=== PATIENT | male | born 1975 | race African-American/Black ===

== ENCOUNTER 2021-03-27 07:37 | Emergency (ER) | payer MEDICAID ==
[~2021-03-27] VITALS: Ht 175.3 cm; Wt 77.0 kg
[2021-03-27] MEDS ORDERED: KETOROLAC 30MG/ML VIAL IV STA (07:55)
[2021-03-27 08:18] LABS: BASOPHILS % 0.9 % (0.0-2.0); EOSINOPHILS % 0.6 % (0.0-5.0); HEMATOCRIT. 41.5 % (42.0-52.0); HEMOGLOBIN. 14.4 g/dL (14.0-18.0); LYMPHOCYTES % 24.1 % (20.0-50.0); MEAN CORPUSCULAR VOLUME 98.2 fL (80.0-94.0); MEAN PLATELET VOLUME 6.4 fl (7.4-10.4); MONOCYTES % 9.9 % (2.0-8.0); NEUTROPHILS % 64.5 % (40.0-76.0); PLATELET 307 x1000/uL (130-400); RED BLOOD CELL COUNT 4.23 mill/uL (4.7-6.1); RED CELL DISTRIBUTION WIDTH 13.1 % (11.6-14.6)
[2021-03-27 08:25] LABS: CHLORIDE 109 mEq/L (98-107)
[2021-03-27 14:00] VITALS: BP 111/71
== END 2021-03-27 15:01 | disposition left against medical advice (07) ==
LOC: ER 07:37
DX: G40.909 Epilepsy, unspecified, not intractable, without status epilepticus (principal); S09.93XA Unspecified injury of face, initial encounter; W01.0XXA Fall on same level from slipping, tripping and stumbling without subsequent striking against object, initial encounter; Y93.89 Activity, other specified; Y92.018 Other place in single-family (private) house as the place of occurrence of the external cause
CPT/HCPCS: 36415; 70450; 71045; 72100; 80053; 83880; 84484; 85025; 93005; 96374; 99285; J1885; Z7610

== ENCOUNTER 2021-03-28 15:05 | Emergency (ER) | payer MEDICAID ==
[~2021-03-28] VITALS: Ht 172.7 cm; Wt 72.0 kg
[2021-03-28 15:21] VITALS: BP 128/89
== END 2021-03-28 16:29 | disposition home or self-care (01) ==
LOC: ER 15:32
DX: R55 Syncope and collapse (principal); Z00.00 Encounter for general adult medical examination without abnormal findings; F17.200 Nicotine dependence, unspecified, uncomplicated; Z98.890 Other specified postprocedural states
CPT/HCPCS: 99281

== ENCOUNTER 2024-07-09 21:49 | Emergency (ER) | payer MEDICAID ==
[~2024-07-09] VITALS: Ht 172.7 cm; Wt 85.0 kg
[2024-07-09 22:00] VITALS: TEMP 98.8; O2SAT 100
[2024-07-09] MEDS ORDERED: ACETAMINOPHEN 325MG TABLET PO ONE (22:30)
[2024-07-09] MEDS: ACETAMINOPHEN 325MG TABLET PO NR (23:12)
[2024-07-10] MEDS: LIDOCAINE HCL/PF 1% 10 MG/ML 5ML VIAL INFIL ONE (00:23)
[2024-07-10] MEDS ORDERED: IBUP-2029 MT (02:45)
[2024-07-10] MEDS ORDERED: HYDR-4001 MT (02:45)
[2024-07-10] MEDS ORDERED: AMOX1TAB16 MT (02:45)
[2024-07-10] MEDS: AMOXICILLIN/POTASSIUM CLAVULANATE 875/125MG TAB PO ONE (02:54)
[2024-07-10 02:58] VITALS: BP 106/66; PULSE 81; RESP 15; O2SAT 91
== END 2024-07-10 03:02 | disposition home or self-care (01) ==
LOC: ER 21:49
DX: S02.32XA Fracture of orbital floor, left side, initial encounter for closed fracture (principal); S02.2XXA Fracture of nasal bones, initial encounter for closed fracture; Z79.899 Other long term (current) drug therapy; Y08.89XA Assault by other specified means, initial encounter; Y93.89 Activity, other specified; Y92.89 Other specified places as the place of occurrence of the external cause; Y99.8 Other external cause status
CPT/HCPCS: 70450; 70486; 12013; 99285; J3490; Z7610

== ENCOUNTER 2024-08-12 09:45 | Emergency (ER) | payer MEDICAID ==
[~2024-08-12] VITALS: Ht 172.7 cm; Wt 75.0 kg
[~2024-08-12 09:45] MED LIST: AMOX1TAB16 MT; HYDR-4001 MT; IBUP-2029 MT
[2024-08-12 09:57] VITALS: O2SAT 99
[2024-08-12 10:08] VITALS: BP 144/81; PULSE 89; RESP 18; TEMP 36.78072; O2SAT 99
== END 2024-08-12 10:09 | disposition home or self-care (01) ==
LOC: ER 09:45
DX: S01.112D Laceration without foreign body of left eyelid and periocular area, subsequent encounter (principal); Z48.02 Encounter for removal of sutures; X58.XXXD Exposure to other specified factors, subsequent encounter
CPT/HCPCS: 99281; Z7610